=== PATIENT | female | born 1975 | race Hispanic/Latino ===

== ENCOUNTER 2022-06-11 07:13 | Observation (INO) | payer OTHER ==
[~2022-06-11] VITALS: Ht 165.1 cm; Wt 75.7 kg
[~2022-06-11 07:13] MED LIST: BACLOFEN20 MG PO; BUSPIRONE HCL10 MG PO; IBUPROFEN800 MG PO; NEURONTIN300 MG PO; SODIUM CHLORIDE 0.9% 250ML 250 ML IV ONE
[2022-06-11] MEDS ORDERED: DEXAMETHASONE SOD PHOS 10 MG/1 ML VIAL ONE (07:14)
[2022-06-11] MEDS ORDERED: CELECOXIB 200 MG CAP ONE (07:14)
[2022-06-11] MEDS ORDERED: GABAPENTIN 300 MG CAP ONE (07:15)
[2022-06-11 07:40] LABS: BASOPHILS % 0.9 % (0.0-1.0); EOSINOPHILS # (AUTO) 0.1 (0.0-0.4); EOSINOPHILS % 2.4 % (0.0-6.0); HEMATOCRIT 39.3 % (34.2-44.1); HEMOGLOBIN 12.8 g/dL (12.0-16.0); LYMPHOCYTES # (AUTO) 1.1 (1.0-3.2); MEAN CORPUSCULAR HEMOGLOBIN 29.3 pg (28-32); MEAN CORPUSCULAR HGB CONC 32.6 g/dL (31-35); MEAN CORPUSCULAR VOLUME 89.9 fL (81-99); MONOCYTES # (AUTO) 0.4 (0.2-0.8); MONOCYTES % 8.1 % (4.4-11.3); NEUTROPHILS # (AUTO) 2.9 (2.1-6.9); NEUTROPHILS % 64.6 % (38.7-80.0); PLATELET COUNT 325 x10e3/uL (140-360); RED BLOOD COUNT 4.37 x10e6/uL (3.6-5.1); RED CELL DISTRIBUTION WIDTH 12.5 % (11.7-14.4)
[2022-06-11] MEDS ORDERED: ROPIVACAINE 246.25 MG, EPINEPHRINE HCL 1:1000 1ML 0.5 MG, CLONIDINE HCL 0.08 MG, KETORO... INJ ONE ×5 (08:00)
[2022-06-11] MEDS ORDERED: Vancomycin IV 1,000 MG ONE (09:56)
[2022-06-11] MEDS ORDERED: SODIUM CHLORIDE 0.9% 500ML 500 ML ONE (09:56)
[2022-06-11] MEDS ORDERED: TRANEXAMIC ACID 20 ML ONE (09:56)
[2022-06-11] MEDS ORDERED: POVIDONE IODINE 0.05% 0.05 % ML PO ONE (11:56)
[2022-06-11] MEDS ORDERED: ACETAMINOPHEN 1000 MG/100 ML IV ONE (11:56)
[2022-06-11] MEDS ORDERED: PROPOFOL IV EMULSION 10 MG/ML 20 ML VIAL ONE (11:56)
[2022-06-11] MEDS ORDERED: SEVOFLURANE INHAL SOLN 250 ML PEN BTL ONE (11:56)
[2022-06-11] MEDS ORDERED: LIDOCAINE HCL 2% LOCAL INJ 5 ML SDV VIAL INJ ONE (11:56)
[2022-06-11] MEDS ORDERED: ONDANSETRON HCL INJ 2MG/ML 2ML 2 MG/ML VIAL ONE (11:56)
[2022-06-11] MEDS ORDERED: ACETAMINOPHEN 650 MG SUPP PR PRN (12:00)
[2022-06-11] MEDS ORDERED: HYDROCODONE/APAP 7.5MG-325MG 1 EA TAB PO PRN (12:00)
[2022-06-11] MEDS ORDERED: DIPHENHYDRAMINE HCL INJ 50 MG/ML VIAL IV PRN (12:00)
[2022-06-11] MEDS ORDERED: HYDROCODONE/APAP 5MG-325MG TAB PO PRN (12:00)
[2022-06-11] MEDS ORDERED: DOCUSATE SODIUM 100 MG CAP PO PRN (12:00)
[2022-06-11] MEDS ORDERED: HYDROMORPHONE 2MG/ML 2 MG/ML ML ONE (12:47)
[2022-06-11] MEDS ORDERED: MEPERIDINE HCL INJ 25 MG/ML VIAL ONE (12:53)
[2022-06-11] MEDS ORDERED: ROPIVACAINE 0.5% 5 MG/ML 30 ML SDV ONE ×2 (13:21→13:22)
[2022-06-11 13:51] VITALS: BP 113/75
[2022-06-11] MEDS ORDERED: FENTANYL CITRATE/PF 100MCG/2 ML INJ ONE (13:53)
[2022-06-11] MEDS ORDERED: MIDAZOLAM HCL 2 MG/2 ML VIAL ONE (13:53)
[2022-06-11 13:56] VITALS: BP 113/75
[2022-06-11] MEDS ORDERED: SODIUM CHLORIDE 0.9% 1000ML 1,000 ML IV SCH (14:30)
[2022-06-11] MEDS ORDERED: ONDANSETRON HCL INJ 2MG/ML 2ML 2 MG/ML VIAL IV PRN (15:00)
[2022-06-11 16:06] VITALS: BP 121/80
[2022-06-11] MEDS ORDERED: ASPIRIN81 MG PO (16:42)
[2022-06-11] MEDS ORDERED: CELECOXIB 200 MG CAP PO SCH (17:00)
[2022-06-11] MEDS ORDERED: ZOLPIDEM TARTRATE 5 MG TAB PO PRN (21:00)
[2022-06-11] MEDS ORDERED: ASPIRIN 325 MG TAB PO SCH (21:15)
[2022-06-12] MEDS ORDERED: ACETAMINOPHEN 1000 MG/100 ML IV PRN (12:00)
== END 2022-06-11 17:58 | disposition home or self-care (01) ==
LOC: OR 07:13 → EDBD 12:00 → PACU V 12:36 → MED/SURG 13:30
PROVIDERS: ADMIT Specialist; ATTEND Specialist
DX: M17.12 Unilateral primary osteoarthritis, left knee (principal); M21.062 Valgus deformity, not elsewhere classified, left knee; Z01.810 Encounter for preprocedural cardiovascular examination; Z01.812 Encounter for preprocedural laboratory examination; Z01.818 Encounter for other preprocedural examination; J45.909 Unspecified asthma, uncomplicated; F41.9 Anxiety disorder, unspecified; F32.A Depression, unspecified; Z88.0 Allergy status to penicillin; Z91.018 Allergy to other foods
CPT/HCPCS: 36415; 71046; 81025; 85025; 86850; 86900; 86920; 96361; C1713; C1776; G0378; J0171; J0690; J1100; J1885; J2001; J2175; J2250; J2405; J2795; J3010; J3370; J7030; J7040

== ENCOUNTER → 2022-07-15 | Outpatient (RCR) | payer OTHER ==
[~2022-07-15] MED LIST changes: +ASPIRIN81 MG PO; -SODIUM CHLORIDE 0.9% 250ML 250 ML IV ONE
== END ==
LOC: PT 06-24 09:07
PROVIDERS: ATTEND Specialist
DX: Z96.652 Presence of left artificial knee joint (principal); Z47.1 Aftercare following joint replacement surgery; M25.462 Effusion, left knee; M62.81 Muscle weakness (generalized)

== ENCOUNTER → 2022-08-14 | Outpatient (RCR) | payer OTHER | LOC: PT 07-17 07:37 | PROVIDERS: ATTEND Specialist | DX: Z47.1 Aftercare following joint replacement surgery (principal); Z96.652 Presence of left artificial knee joint; M25.462 Effusion, left knee; M62.81 Muscle weakness (generalized) ==

== ENCOUNTER 2022-10-11 10:00 | Outpatient (RCR) | payer OTHER | END 2022-10-15 | LOC: PT 10:00 | PROVIDERS: ATTEND Specialist | DX: Z47.1 Aftercare following joint replacement surgery (principal); Z96.652 Presence of left artificial knee joint; M25.462 Effusion, left knee; M62.81 Muscle weakness (generalized) ==

== ENCOUNTER → 2022-11-12 | Outpatient (RCR) | payer OTHER | LOC: PT 10-29 10:06 | PROVIDERS: ATTEND Specialist | DX: Z47.1 Aftercare following joint replacement surgery (principal); Z96.652 Presence of left artificial knee joint; M62.81 Muscle weakness (generalized) ==